=== PATIENT | female | born 1950 | race Caucasian/White ===

== ENCOUNTER 2017-11-22 11:14 | Emergency (ER) | payer OTHER ==
[~2017-11-22] VITALS: Ht 154.9 cm; Wt 53.1 kg
[2017-11-22] MEDS ORDERED: METFORMIN HCL500 MG (11:30)
== END 2017-11-22 15:29 | disposition home or self-care (01) ==
LOC: ER 11:14
DX: R10.2 Pelvic and perineal pain (principal)

== ENCOUNTER 2017-11-24 15:02 | Inpatient (IN) | payer OTHER ==
[~2017-11-24] VITALS: Ht 157.5 cm; Wt 52.2 kg
[~2017-11-24 15:02] MED LIST: METFORMIN HCL500 MG
[2017-11-24] MEDS ORDERED: PEPCID20 MG (15:16)
[2017-12-06] MEDS ORDERED: NEURONTIN300 MG PO ×2 (17:32)
[2017-12-06] MEDS ORDERED: SENOKOT-S TABL1 EACH PO (17:32)
[2017-12-06] MEDS ORDERED: FENTANYL1 EAC3 TD (17:32)
[2017-12-06] MEDS ORDERED: AMITRIPTYLINE H10 MG PO (17:32)
[2017-12-06] MEDS ORDERED: OXYC1TAB9 PO (17:32)
== END 2017-12-06 18:34 | disposition home or self-care (01) | DRG 854 ==
LOC: ER 15:02 → MEDI 11-25 11:06
PROVIDERS: Obstetrics & Gynecology Gynecologic Oncology
PROC: 30233N1 Transfusion of Nonautologous Red Blood Cells into Peripheral Vein, Percutaneous Approach (ICD-10-PCS; 2017-11-28)
PROC: B246ZZZ Ultrasonography of Right and Left Heart (ICD-10-PCS; 2017-12-03)
PROC: 0WJJ4ZZ Inspection of Pelvic Cavity, Percutaneous Endoscopic Approach (ICD-10-PCS; 2017-12-05)
PROC: 0UBG7ZZ Excision of Vagina, Via Natural or Artificial Opening (ICD-10-PCS; principal; 2017-12-05 21:30)
DX: A41.9 Sepsis, unspecified organism (principal); N39.0 Urinary tract infection, site not specified; C79.82 Secondary malignant neoplasm of genital organs; N93.8 Other specified abnormal uterine and vaginal bleeding; G89.3 Neoplasm related pain (acute) (chronic); C54.1 Malignant neoplasm of endometrium; D50.0 Iron deficiency anemia secondary to blood loss (chronic); D47.3 Essential (hemorrhagic) thrombocythemia

== ENCOUNTER → 2018-01-20 | Emergency (ER) | payer OTHER ==
[~2018-01-20] MED LIST changes: +AMITRIPTYLINE H10 MG PO; +FENTANYL1 EAC3 TD; +NEURONTIN300 MG PO; +OXYC1TAB9 PO; +PEPCID20 MG; +SENOKOT-S TABL1 EACH PO
== END | disposition home or self-care (01) ==
LOC: ER 08:32
DX: K56.41 Fecal impaction (principal); C54.1 Malignant neoplasm of endometrium

== ENCOUNTER 2018-05-19 18:38 | Inpatient (IN) | payer OTHER ==
[~2018-05-19] VITALS: Ht 154.9 cm; Wt 38.6 kg
[~2018-05-19 18:38] MED LIST changes: +KETO10TA2
[2018-05-21] MEDS ORDERED: KETO10TA2 PO (11:55)
== END 2018-05-21 19:48 | disposition home or self-care (01) | DRG 812 ==
LOC: ER 18:38 → SEC-K 05-20 10:27 → MEDI 05-21 01:11
PROC: 30233N1 Transfusion of Nonautologous Red Blood Cells into Peripheral Vein, Percutaneous Approach (ICD-10-PCS; principal; 2018-05-20)
PROC: BW25Y0Z Computerized Tomography (CT Scan) of Chest, Abdomen and Pelvis using Other Contrast, Unenhanced and Enhanced (ICD-10-PCS; 2018-05-20)
DX: D64.81 Anemia due to antineoplastic chemotherapy (principal); C54.1 Malignant neoplasm of endometrium; T45.1X5A Adverse effect of antineoplastic and immunosuppressive drugs, initial encounter; G89.3 Neoplasm related pain (acute) (chronic); D63.0 Anemia in neoplastic disease

== ENCOUNTER 2018-06-30 11:00 | Inpatient (IN) | payer OTHER ==
[~2018-06-30] VITALS: Ht 61 cm; Wt 5.0 kg
[~2018-06-30 11:00] MED LIST changes: +KETO10TA2 PO
[2018-06-30] MEDS ORDERED: PERCOCET 5-3251 EACH (11:16)
[2018-07-04] MEDS ORDERED: PERCOCET 5-3251 EACH PO (14:06)
[2018-07-04] MEDS ORDERED: NeurRONTin 250MG/5ML PO (14:06)
[2018-07-04] MEDS ORDERED: PROTONIX40 MG PO (14:06)
[2018-07-04] MEDS ORDERED: CYMBALTA30 MG PO (14:06)
[2018-07-04] MEDS ORDERED: FENTANYL1 EAC3 TD (14:06)
[2018-07-04] MEDS ORDERED: CIPRO250 MG PO (14:08)
== END 2018-07-04 15:00 | disposition home or self-care (01) | DRG 872 ==
LOC: ER 11:00 → MEDJ 17:34
PROC: BW25Y0Z Computerized Tomography (CT Scan) of Chest, Abdomen and Pelvis using Other Contrast, Unenhanced and Enhanced (ICD-10-PCS; 2018-06-30)
PROC: 30233N1 Transfusion of Nonautologous Red Blood Cells into Peripheral Vein, Percutaneous Approach (ICD-10-PCS; principal; 2018-07-01)
PROC: BW25Y0Z Computerized Tomography (CT Scan) of Chest, Abdomen and Pelvis using Other Contrast, Unenhanced and Enhanced (ICD-10-PCS; 2018-07-02)
DX: A41.9 Sepsis, unspecified organism (principal); B37.0 Candidal stomatitis; N39.0 Urinary tract infection, site not specified; G89.3 Neoplasm related pain (acute) (chronic); C54.1 Malignant neoplasm of endometrium; E86.0 Dehydration; D63.0 Anemia in neoplastic disease

== ENCOUNTER 2018-08-23 15:19 | Inpatient (IN) | payer OTHER ==
[~2018-08-23] VITALS: Ht 154.9 cm; Wt 31.8 kg
[~2018-08-23 15:19] MED LIST changes: +CIPRO250 MG PO; +CYMBALTA30 MG PO; +NeurRONTin 250MG/5ML PO; +PERCOCET 5-3251 EACH; +PERCOCET 5-3251 EACH PO; +PROTONIX40 MG PO
[2018-08-25] MEDS ORDERED: GABAPENTIN250 MG/5 M PO ×2 (16:23)
[2018-08-28] MEDS ORDERED: SENOKOT-S TABL1 EACH PO (13:44)
== END 2018-08-28 16:50 | disposition home or self-care (01) | DRG 388 ==
LOC: ER 15:19 → SURH 08-24 08:54 → MEDI 08-24 08:54 → SURH 08-24 09:19
PROC: 30233N1 Transfusion of Nonautologous Red Blood Cells into Peripheral Vein, Percutaneous Approach (ICD-10-PCS; principal; 2018-08-24)
DX: K56.41 Fecal impaction (principal); A41.9 Sepsis, unspecified organism; N39.0 Urinary tract infection, site not specified; E86.0 Dehydration; C54.1 Malignant neoplasm of endometrium; G89.3 Neoplasm related pain (acute) (chronic); D63.0 Anemia in neoplastic disease; D47.3 Essential (hemorrhagic) thrombocythemia

== ENCOUNTER 2018-09-06 22:35 | Emergency (ER) | payer OTHER ==
[~2018-09-06] VITALS: Ht 154.9 cm; Wt 38.1 kg
[~2018-09-06 22:35] MED LIST changes: +GABAPENTIN250 MG/5 M PO
== END 2018-09-07 10:44 | disposition home or self-care (01) ==
LOC: ER 22:35
DX: N39.0 Urinary tract infection, site not specified (principal); E86.0 Dehydration; R06.02 Shortness of breath

== ENCOUNTER 2018-10-20 18:36 | Emergency (ER) | payer OTHER ==
[~2018-10-20] VITALS: Ht 154.9 cm; Wt 36.3 kg
[2018-10-20] MEDS ORDERED: FENTANYL1 EAC2 TD (18:56)
== END 2018-10-20 23:56 | disposition home or self-care (01) ==
LOC: ER 18:36
DX: R10.2 Pelvic and perineal pain (principal); C54.1 Malignant neoplasm of endometrium

== ENCOUNTER 2018-10-24 17:10 | Inpatient (IN) | payer OTHER ==
[~2018-10-24] VITALS: Ht 154.9 cm; Wt 34.0 kg
[~2018-10-24 17:10] MED LIST changes: +FENTANYL1 EAC2 TD
[2018-10-28] MEDS ORDERED: NEURONTIN300 MG PO (13:40)
[2018-10-28] MEDS ORDERED: KETO10TA2 PO (13:41)
[2018-10-28] MEDS ORDERED: SENOKOT-S TABL1 EACH PO (13:41)
[2018-10-28] MEDS ORDERED: FENTANYL1 EAC4 TD (13:41)
[2018-10-28] MEDS ORDERED: PERCOCET 5-3251 EACH PO (13:42)
== END 2018-10-28 16:48 | disposition other institution (70) | DRG 754 ==
LOC: ER 17:10 → SURH 21:50 → SEC-K 21:50 → MEDJ 23:24 → SURH 10-26 10:19
PROC: BW25Y0Z Computerized Tomography (CT Scan) of Chest, Abdomen and Pelvis using Other Contrast, Unenhanced and Enhanced (ICD-10-PCS; principal; 2018-10-25)
PROC: 8E0ZXY6 Isolation (ICD-10-PCS; 2018-10-26)
DX: C54.1 Malignant neoplasm of endometrium (principal); B37.7 Candidal sepsis; R65.10 Systemic inflammatory response syndrome (SIRS) of non-infectious origin without acute organ dysfunction; B37.0 Candidal stomatitis; C52 Malignant neoplasm of vagina; D72.828 Other elevated white blood cell count; D47.3 Essential (hemorrhagic) thrombocythemia; D64.89 Other specified anemias; R06.02 Shortness of breath; K56.41 Fecal impaction